=== PATIENT | male | born 1960 | race Caucasian/White ===

== ENCOUNTER → 2020-03-30 | Outpatient (CLI) | payer BC, OTHER ==
[~2020-03-30] MED LIST: ASA81BEC PO; LIPITOR10 MG PO
== END ==
LOC: SJCVCIMAG 09:36
PROVIDERS: ATTEND Internal Medicine
DX: I51.7 Cardiomegaly (principal); R55 Syncope and collapse

== ENCOUNTER → 2020-04-08 | Outpatient (CLI) | payer BC, OTHER | LOC: LAB 09:20 | PROVIDERS: ATTEND Internal Medicine | DX: Z11.59 Encounter for screening for other viral diseases (principal) ==

== ENCOUNTER 2020-04-09 09:22 | Inpatient (IN) | payer BC ==
[~2020-04-09] VITALS: Ht 180.3 cm; Wt 111.1 kg
[2020-04-09 10:43] VITALS: BP 133/80
[2020-04-09] MEDS ORDERED: ASA81BEC PO (10:49)
[2020-04-09] MEDS ORDERED: LIPITOR10 MG PO (10:49)
[2020-04-09 11:10] LABS: ABSOLUTE NEUTROPHILS 3.4 thou/uL (1.4-8.2); BASOPHILS 1.1 % (0.0-2.0); EOSINOPHILS 2.5 % (0.0-3.0); HEMATOCRIT 43.9 % (42.0-52.0); HEMOGLOBIN 15.1 gm/dL (14.0-18.0); LYMPHOCYTES 28.7 % (24.0-44.0); MCH 33.6 pg (26.0-34.0); MCHC 34.3 g/dL (28.0-37.0); MCV 97.8 fL (80.0-100.0); MONOCYTES 6.3 % (1.0-8.0); PLATELET COUNT 208 thou/uL (150-400); POLYS 61.4 % (36.0-66.0); RBC 4.49 mil/uL (4.50-6.00); RDW 13.2 % (10.5-14.5); WBC 5.5 thou/uL (4.0-11.0)
[2020-04-09 11:27] LABS: APTT 25.2 Seconds (24.5-32.8); CREATININE 0.8 mg/dL (0.7-1.3); POTASSIUM 4.3 mmol/L (3.5-5.1)
[2020-04-09 11:36] LABS: ALBUMIN 3.8 g/dL (3.4-5.0); TOTAL BILIRUBIN 0.9 mg/dL (0.2-1.0); TOTAL PROTEIN 6.7 g/dL (6.4-8.2)
--- NOTE | 2020-04-09 15:54 | P ---
[facility] [place] [address] PROCEDURE REPORT Name: DARCY WORKMAN Room #: 215-P [facility] M.R.#: [id number] Admission: 04/09/20 Attend Phys: Oscar Farah MD Discharge: Date of : 62 Report #: [id number] THIS REPORT FOR: cc: Lexus Wolff MD,Lexus Farah,Oscar Chu MD ~ CC: Lexus Farah DATE OF SERVICE: 04/09/2020 PREOPERATIVE DIAGNOSES: 1. Syncope. 2. Intermittent complete heart block. PROCEDURES PERFORMED: Dual-chamber pacemaker implantation. HISTORY: The patient is a 59-year-old male with a history of recent syncopal episodes, who wore theater education teacher, which showed several episodes of complete heart block with ventricular asystole. The longest episode was greater than 20 seconds. He is here for dual chamber pacemaker implantation. ANESTHESIA: The patient underwent MAC anesthesia with no anesthesia related complications. DESCRIPTION OF PROCEDURE: The patient underwent informed consent. We discussed the details of the procedure including the risks, which include but not limited to bleeding, infection, vascular damage, cardiac perforation, pneumothorax. He understood these risks and is willing to proceed. The patient was brought to the EP laboratory in a fasting and sedated state, prepped and draped in a sterile fashion. The patient received IV antibiotics and underwent a venogram showing patency of left axillary vein. Next, lidocaine was injected and incision was made, pocket was created over the prepectoral fascia and access was obtained twice to left axillary vein with sheaths positioned using the modified Seldinger technique. Next, under fluoroscopy, leads were positioned in the right ventricular apex and right atrial appendage both with adequate pacing and sensing thresholds and they were sutured to prepectoral fascia using Ethibond suture. The pocket was irrigated with vancomycin. The pacemaker connected. Tug test was performed and the pocket was closed in 2 layers using 2-0 for the deep layer, 3-0 for the middle layer and surgical glue for the outer skin layer. The patient awoke neurologically and hemodynamically intact. No complications and no significant bleeding. Implanted pacemaker was a Medtronic model #W3DR01, serial #[id number]. Atrial lead was a Medtronic model #5076, serial #[id number]. RV lead was a Medtronic [facility] [address] [place] [address] PROCEDURE REPORT Name: DARCY WORKMAN Room #: 215-P [facility] Aminta Mandel#: [id number] Admission: 04/09/20 Attend Phys: Oscar Farah MD Discharge: Date of : 62 Report #: [id number] model #5076, 58 cm, serial #[id number]. The pacemaker demonstrated P-wave 2.5 millivolts, pacing impedance of 551 ohms and pacing threshold 0.5 volts at 0.4 milliseconds. RV lead demonstrated R-wave greater than 12 millivolts, pacing impedance of 817 ohms and pacing threshold 0.5 volts at 0.4 milliseconds. The pacemaker was programmed to the AAI/DDDR 60-130 mode. CONCLUSIONS: 1. Successful dual-chamber pacemaker implantation. 2. Satisfactory atrial and ventricular pacing and sensing thresholds. <ELECTRONICALLY SIGNED> By: Oscar Farah MD 04/09/20 1554 [id number] Oscar Farah MD /nt
[2020-04-09 15:55] VITALS: BP 159/86
--- NOTE | 2020-04-09 19:04 | NUR ---
PT CARE ASSUMED AT 1425. ASSESSMENT CHARTED. MEDICATION CHARTED. PT IS LT SUBCLAVIAN PACEMAKER PLACEMENT. V PACED. BATHROOM PRIVLEGES. WELL APPROXIMATED.
[2020-04-09 20:49] VITALS: BP 148/89
[2020-04-09 20:51] VITALS: BP 148/89
[2020-04-10] VITALS (8 sets, daily range): BP systolic 127–150; BP diastolic 78–91
--- NOTE | 2020-04-10 05:22 | NUR ---
ASSESSMENTS CHARTED, MEDS CHARTED GIVEN. PATIENT ON BEDREST FOR SHIFT DUE TO PACEMAKER PLACEMENT DURING DAY. LEFT ARM IN IMMOBILIZER DURING SHIFT. BATHROOM PRIVILEGES. INCISION SITE IS DRY AND INTACT. PATIENT COMPLAIN OF PAIN IN AREA 6/10. C/O HEADACHE AT START OF SHIFT. FALL PRECAUTIONS IN PLACE DURING SHIFT. PLAN OF CARE IS TO GO HOME AFTER MORNING XRAY AND INTERROGATION OF DEVICE.
--- NOTE | 2020-04-10 10:38 | NUR ---
ASSUMED PT CARE THIS AM, ASSESSED, VSS, PT UP TO BATHROOM WITH STEADY GAIT, PT WENT DOWN FOR XRAY, RADIOLOGIST CALLED TO REPORT 4CM PNEUMOTHORAX AT [facility] SITE, DR ROUSE MADE AWARE, ORDERED REPEAT PA/LAT AT 2PM TO SEE IF ANY CHANGES, PT ON 2L NC OXYGEN, PT AND HIS ARE BOTH AWARE OF POC AND THAT HE'LL HAVE TO STAY ANOTHER NIGHT TO MONITOR. PT HAS SCDS ON WHILE IN BED, CALL LIGHT IN HAND, WILL MONITOR
--- NOTE | 2020-04-10 14:15 | NUR ---
ASSUMED CARE OF PT MID SHIFT. A&0X4, AMB STEADY AND INDEPENDENTLY. C/O INTERMITTENT SORENESS/TIGHTNESS IN LEFT CHEST. REPORT OF CHEST TUBE PLACEMENT. CALLED IR TO ENSURE TIME OF ARRIVAL. REPORT OF NPO SINCE BREAKFAST SAVE FOR ICE CHIPS. LET IR KNOW. SPOUSE AT BEDSIDE. IR CAME AT 1415, PRINTED OUT CONSENT FORM FOR PT TO SIGN, AND PLACED HIM ON STANDBY. WILL CONTINUE TO MONITOR UPON RETURN.
--- NOTE | 2020-04-10 15:51 | NUR ---
REC PT BACK FROM PROCEDURE, ALL WORKED TOGETHER TO LAW LIBRARIAN SUCTION TO -20MM CONTINUOUS. PT IN PAIN YET DOESN'T WANT TO EAT AT THIS TIME, CALLING PHYSICIAN FOR CXR AND IV PAIN MEDS, IF APPLICABLE. VS ARE WNL FOR PT. ENCOURAGED BOTH SPOUSE AND PT TO CALL SHOULD ANYTHING BE NEEDED AND WILL CONTINUE TO MONITOR
--- NOTE | 2020-04-11 04:07 | NUR ---
ASSESSMENTS CHARTED, MEDS GIVEN CHARTED. PATIENT RESTING IN BED DURING SHIFT. NOW HAS CHEST TUBE IN PLACE ATTACHED TO SUCTION AND ATRIUM. NO OUTPUT IN TUBING. C/O PAIN SEVERAL TIMES DURING SHIFT, MEDICATED. UP TO BATHROOM WITH ASSIST. SHOULDER IMMOBILIZER BACK IN PLACE FOR SLEEPING. FALL PRECAUTIONS IN PLACE DURING SHIFT.
[2020-04-11 04:45] VITALS: BP 137/86
[2020-04-11 07:25] VITALS: BP 146/95
--- NOTE | 2020-04-11 07:42 | NUR ---
ASSUMED CARE OF PT AT SHIFT CHANGE, APPEARS IN GOOD SPIRITS ALTHOUGH PAIN IS NOT LESS IN INSERTION SITE, GOT A LITTLE BIT OF SLEEP LAST NIGHT, ENCOURAGED TO TAKE DEEP LONG SLOW INHALATIONS/EXHALATIONS, AND HE STATES IT HURTS. GAVE CRACKERS/APPLE SAUCE WITH A.M. MEDS. WILL CONTINUE TO MONITOR. SEE SEPARATE INTERVENTIONS FOR ASSESSMENTS. ENCOURAGED BOTH SPOUSE AND PT TO CALL FOR ANY NEEDS. FINALLY WITH MOVEMENT PT HAD SOME BLOOD ASPIRATE INTO THE CHEST TUBES, LESS THAN 5-10ML, NO OUTPUT THROUGH NIGHT. THIS OCCURRED WITH AMB TO RESTROOM
[2020-04-11 11:20] VITALS: BP 148/89
--- NOTE | 2020-04-11 14:40 | NUR ---
ASSUMED CARE OF PT FROM CARLIN RAMIREZ, AT 1300. PT ASSESSED, CHEST TUBE TO LOW SUCTION, AT 2 PM SUCTION TURNED OFF PER DR DAVIS, STAT XRAY ORDERED FOR 4PM, AND RESULTS ARE TO BE CALLED TO DR DAVIS, PT AWARE OF POC, HE AND BOTH VERBALIZED UNDERSTANDING, PAIN MEDS GIVEN, CALL LIGHT IN LAP, WILL MONITOR.
[2020-04-11 15:55] VITALS: BP 137/88
[2020-04-12 04:45] VITALS: BP 141/81; BP 162/71
[2020-04-12 04:50] LABS: ABSOLUTE NEUTROPHILS 4.5 thou/uL (1.4-8.2); BASOPHILS 0.5 % (0.0-2.0); EOSINOPHILS 4.9 % (0.0-3.0); HEMATOCRIT 47.4 % (42.0-52.0); HEMOGLOBIN 16.2 gm/dL (14.0-18.0); LYMPHOCYTES 25.9 % (24.0-44.0); MCH 33.6 pg (26.0-34.0); MCHC 34.1 g/dL (28.0-37.0); MCV 98.6 fL (80.0-100.0); MONOCYTES 7.1 % (1.0-8.0); PLATELET COUNT 199 thou/uL (150-400); POLYS 61.6 % (36.0-66.0); RBC 4.81 mil/uL (4.50-6.00); RDW 12.9 % (10.5-14.5); WBC 7.3 thou/uL (4.0-11.0)
[2020-04-12 05:31] LABS: CALCIUM 9.2 mg/dL (8.5-10.1); POTASSIUM 4.4 mmol/L (3.5-5.1)
--- NOTE | 2020-04-12 07:41 | NUR ---
ASSESSMENTS CHARTED, MEDS GIVEN CHARTED. RESTING IN BED DURING SHIFT PAIN MANAGEMENT IS HENRIQUEZ ISSUE. CHEST TUBE STILL IN PLACE TO WATER SEAL ATRIUM. PNEUMOTHORAX HAS RESOLVED. MINIMAL OUTPUT. PLAN IS TO REMOVE CT TODAY AND PATIENT POSSIBLY GOING HOME. FALL PRECAUTIONS IN PLACE DURING SHIFT.
[2020-04-12 08:00] VITALS: BP 142/99
--- NOTE | 2020-04-12 11:10 | NUR ---
PT CARE ASSUMED AT 0700, PT ALERT AND ORIENTED X4, DENIES CHEST PAIN, NAUSEA AND VOMITING. COMPLAINS OF NON CARDIACH CHEST PAIN WITH BREATHING OR COUGHING. PT MEDICATED PER ORDER. PT IS ON ROOM AIR, NO SIGNS OF DISTRES NOTED. PT IN ROOM VISITING. BED AT LOWEST LEVEL, CALL LIGHT AND TABKE WITHIN REACH. WILL CONTINUE TO MONITOR.
[2020-04-12 13:28] VITALS: BP 130/79
--- NOTE | 2020-04-12 13:35 | NUR ---
[address] MEREDITH. SITE DRY, CLEAN AND INTACT.
--- NOTE | 2020-04-12 13:58 | NUR ---
PT EDUCATED ON CHEST TUBE SITE/POST PASCEMAKER INSTRUCTION AND EDUCATION. IV DISCONTINUED.DISCHARGE EDUCATION COMPLETED AND APPOINTMENT. ALL PT BELONGINS PACKED. PT SEND DOWN VIA WHEELCHAIR. PICKED PT UP.
== END 2020-04-12 13:51 | disposition home or self-care (01) | DRG 243 ==
LOC: CATH 09:22 → 2N 14:39 → CATH 15:45 → 2N 04-10 10:33
PROVIDERS: ADMIT Internal Medicine Cardiovascular Disease; ATTEND Internal Medicine Cardiovascular Disease
DX: I44.2 Atrioventricular block, complete (principal); J93.83 Other pneumothorax; E78.5 Hyperlipidemia, unspecified; G47.33 Obstructive sleep apnea (adult) (pediatric); G47.10 Hypersomnia, unspecified; Z82.49 Family history of ischemic heart disease and other diseases of the circulatory system; Z79.82 Long term (current) use of aspirin; Z79.899 Other long term (current) drug therapy
CPT/HCPCS: 10081; 62110; 62900; 70005

== ENCOUNTER → 2020-04-29 | Outpatient (CLI) | payer BC ==
--- NOTE | 2020-05-02 19:09 | SLE ---
[facility] [place] [address] POLYSOMNOGRAPHY STUDY Name: DARCY WORKMAN Room #: [facility]#: [id number] Admission: 04/29/20 Attend Phys: Bhupinder Hawkins MD, Discharge: Date of : 62 Report #: [id number] THIS REPORT FOR: //name// CC: BHUPINDER Hawkins DATE OF SERVICE: 04/29/2020 SLEEP STUDY REFERRING PHYSICIAN: Dr. Bhupinder Hawkins. The patient is 60 years old who weighs 250 pounds with a BMI of 34.9. The patient's Warren score was 10. The patient underwent split night study performed at [facility]. During the night study, the patient spent 472 minutes in bed and slept for 365 minutes with a sleep efficiency of 77%. Sleep latency was 7.8 minutes with a REM latency of 66 minutes. Sleep architecture showed normal stage 1 sleep, increased stage 2 sleep, absent slow wave and normal REM sleep. During the initial diagnostic portion of the study, the patient slept for 202 minutes. During that time, there were 3 obstructive apneas, no mixed apneas, no central apneas, and 40 hypopneas. The patient's AHI was 12.7 per hour with a REM AHI of 57.7 per hour and a supine AHI of 40.7 per hour. EKG monitoring revealed an average heart rate of 61 beats per minute. No sustained arrhythmias observed. PLMS were seen at an index of 7 per hour and 0.6 per hour caused EEG arousals. PLMS resolved while the patient slept on CPAP. Nocturnal oximetry study revealed an average oxygen saturation of 95% with a lowest of 88%. Only 0.4 minutes were spent in oxygen saturation less than 89%. The patient met the criteria for CPAP initiation. It was started at 7 cm water and titrated up to 14 cm water. At the final pressure, the patient slept for 72 minutes including 20 minutes of supine REM sleep. The patient's AHI was reduced to 5 per hour and oxygen saturation remained above 95%. IMPRESSION: 1. Mild obstructive sleep apnea with worsening during supine and REM sleep. Total AHI 12.7 per hour with a REM AHI of 57.7 per hour and a supine AHI of 40.7 per hour. 2. No clinically significant nocturnal hypoxia. [address] [address] POLYSOMNOGRAPHY STUDY Name: DARCY WORKMAN Room #: REG [facility]#: [id number] Admission: 04/29/20 Attend Phys: Bhupinder Hawkins MD, Discharge: Date of : 62 Report #: [id number] 3. No clinically significant periodic limb movements. RECOMMENDATIONS: 1. CPAP at 14 cm water completely eliminated the patient's sleep apnea and should be used on a nightly basis. 2. Follow up in 4-6 weeks to assess compliance with CPAP and to document clinical improvement. 3. Weight loss is advised. 4. Avoid TEAMCENTER SOLUTION ARCHITECT depressants. 5. Cautioned regarding driving until symptoms of sleep apnea resolve with the use of CPAP. 6. Avoid supine sleep. <ELECTRONICALLY SIGNED> By: Duane Saha MD 05/02/20 [id number] Duane Saha MD /nt
== END ==
LOC: SLEEPLAB 21:09
PROVIDERS: ATTEND Internal Medicine
DX: G47.30 Sleep apnea, unspecified (principal); G47.10 Hypersomnia, unspecified